=== PATIENT | female | born 1935 | race Caucasian/White ===

== ENCOUNTER → 2017-03-25 | Outpatient (CLI) | payer OTHER | LOC: BMCIMAGING 13:47 | PROVIDERS: ATTEND Orthopaedic Surgery Hand Surgery | DX: Z01.818 Encounter for other preprocedural examination (principal) ==

== ENCOUNTER → 2017-03-26 | Outpatient (CLI) | payer OTHER | LOC: FIMAGING 11:05 | PROVIDERS: ATTEND Family Medicine | DX: Z12.31 Encounter for screening mammogram for malignant neoplasm of breast (principal); Z85.3 Personal history of malignant neoplasm of breast; Z80.3 Family history of malignant neoplasm of breast | CPT/HCPCS: G0202 ==

== ENCOUNTER → 2017-06-13 | Outpatient (CLI) | payer OTHER | LOC: FIMAGING 14:29 | PROVIDERS: ATTEND Internal Medicine Hematology & Oncology | DX: Z13.820 Encounter for screening for osteoporosis (principal); M81.0 Age-related osteoporosis without current pathological fracture; Z85.3 Personal history of malignant neoplasm of breast ==

== ENCOUNTER 2017-09-26 18:46 | Emergency (ER) | payer OTHER ==
[2017-09-26] MEDS ORDERED: diphenhydrAMINE 25 MG CAP PO ONE (19:27)
[2017-09-26] MEDS ORDERED: FAMOTIDINE 20 MG TAB PO ONE (19:27)
[2017-09-26] MEDS ORDERED: predniSONE 20 MG TAB PO ONE (19:27)
--- NOTE | 2017-09-26 19:30 | EDPHY ---
H & P Stated Complaint: pt had cold/cold sores and now noted gross swelling l upper lip Time Seen by Provider: 09/26/17 19:12 HPI/ROS: CHIEF COMPLAINT: Upper lip swelling HISTORY OF PRESENT ILLNESS: The patient is an 81-year-old female with a history of hypertension on an JOSE E-inhibitor who comes to the emergency department complaining of left upper lip swelling for the last hour. She states that it was worse at home that it is now. She denies any intraoral cyst or throat swelling. No difficulty breathing. She has been taking the Jose E inhibitor for over a decade. She does report having cold sores in that area earlier this week that she has been using Carmex for. She has not had any open lesions or sores. She reports a mild cold symptoms for the last few days. This is never happened before. REVIEW OF SYSTEMS: Constitutional: denies: chills, fever, recent illness, recent injury EENTM: See HPI Respiratory: denies: cough, shortness of breath Cardiac: denies: chest pain, irregular heart rate, lightheadedness, palpitations Gastrointestinal/Abdominal: denies: abdominal pain, diarrhea, nausea, vomiting, blood streaked stools Genitourinary: denies: dysuria, frequency, hematuria, pain Musculoskeletal: denies: joint pain, muscle pain Skin: denies: lesions, rash, jaundice, bruising Neurological: denies: headache, numbness, paresthesia, tingling, dizziness, weakness Hematologic/Lymphatic: denies: blood clots, easy bleeding, easy bruising Immunologic/allergic: denies: HIV/AIDS, transplant EXAM: GENERAL: Well-appearing, well-nourished and in no acute distress. HEAD: Atraumatic, normocephalic. EYES: Pupils equal round and reactive to light, extraocular movements intact, sclera anicteric, conjunctiva are normal. ENT: TMs normal, nares patent, mild swelling and edema to left upper lip. Soft , not firm, not tender, not erythematous or warm. Moist mucous membranes. NECK: Normal range of motion, supple without lymphadenopathy or JVD. LUNGS: Breath sounds clear to auscultation bilaterally and equal. No wheezes rales or rhonchi. HEART: Regular rate and rhythm without murmurs, rubs or gallops. ABDOMEN: Soft, nontender, normoactive bowel sounds. No guarding, no rebound. No masses appreciated. BACK: No CVA tenderness, no spinal tenderness, step-offs or deformities EXTREMITIES: Normal range of motion, no pitting or edema. No clubbing or cyanosis. NEUROLOGICAL: Cranial nerves II through XII grossly intact. Normal speech, normal gait. 5/5 strength, normal movement in all extremities, normal sensation PSYCH: Normal mood, normal affect. SKIN: Warm, dry, normal turgor, no visible rashes or lesions. Source: Patient Exam Limitations: No limitations - Personal History Current Tetanus/Diphtheria Vaccine: Unsure - Medical/Surgical History Hx Asthma: No Hx Chronic Respiratory Disease: No Hx Diabetes: Yes Hx Cardiac Disease: No Hx Renal Disease: No Hx Cirrhosis: No Hx Alcoholism: No Hx HIV/AIDS: No Hx Splenectomy or Spleen Trauma: No Other PMH: htn/ - Family History Significant Family History: No pertinent family hx - Social History Smoking Status: Never smoked Alcohol Use: Sober Constitutional: Initial Vital Signs Temperature (C) 36.8 C 09/26/17 18:55 Heart Rate 95 09/26/17 18:55 Respiratory Rate 18 09/26/17 18:55 Blood Pressure 156/99 H 09/26/17 18:55 O2 Sat (%) 96 09/26/17 18:55 O2 Delivery Mode Room Air Allergies/Adverse Reactions: amoxicillin [From Augmentin] Allergy (Verified 09/26/17 18:54) clavulanic acid [From Augmentin] Allergy (Verified 09/26/17 18:54) unknown med Allergy (Uncoded 09/26/17 18:52) Home Medications: Medication Instructions Recorded Amlodipine Besylate 09/26/17 Anastrozole 09/26/17 BENAZEPRIL HCL 09/26/17 CeleBREX 09/26/17 Hydrochlorothiazide 09/26/17 Metformin HCl 09/26/17 SIMVASTATIN 09/26/17 predniSONE 60 mg PO DAILY #9 tab 09/26/17 Medical Decision Making ED Course/Re-evaluation: I will treat the patient for what is presumably Jose E inhibitor induced angioedema with steroids and antihistamines. I instructed her not to take this medication any further to follow up with her regular Dr for a replacement. 8:15 p.m. the patient's symptoms are improving. She is eager to go home. I will have her take a short course of steroids and Benadryl p.r.n. and follow up with her doctor. She will discontinue the JOSE E-inhibitor. Differential Diagnosis: Partial list of the Differential diagnosis considered include but were not limited to; angioedema, allergic reaction, cellulitis and although unlikely based on the history and physical exam, I also considered abscess, trauma, vasculitis. I discussed these differential diagnoses and the plan with the patient as well as the usual and expected course. The patient understands that the diagnosis is provisional and that in medicine we are not always correct and that further workup is often warranted. Usual and customary warnings were given. All of the patient's questions were answered. The patient was instructed to return to the emergency department should the symptoms at all worsen or return, otherwise to followup with the physician as we discussed. 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 Monitor your blood pressure and follow up with her doctor as planned on for further evaluation. Return to the emergency department if you develop any worsening swelling. Referrals: Rogelio Leonardo MD [Primary Care Provider] - As per Instructions Prescriptions: predniSONE 60 mg PO DAILY #9 tab
[2017-09-26 20:32] VITALS: BP 136/84; PULSE 93; RESP 18; TEMP 97.5; O2SAT 94
== END 2017-09-26 20:30 | disposition home or self-care (01) ==
DX: T78.3XXA Angioneurotic edema, initial encounter (principal); T46.4X5A Adverse effect of angiotensin-converting-enzyme inhibitors, initial encounter; I10 Essential (primary) hypertension; E11.9 Type 2 diabetes mellitus without complications; Z79.82 Long term (current) use of aspirin
CPT/HCPCS: 99283; J7512

== ENCOUNTER → 2018-03-28 | Outpatient (CLI) | payer OTHER | LOC: FIMAGING 11:01 | PROVIDERS: ATTEND Family Medicine | DX: Z12.31 Encounter for screening mammogram for malignant neoplasm of breast (principal); Z85.3 Personal history of malignant neoplasm of breast; Z80.3 Family history of malignant neoplasm of breast ==